=== PATIENT | female | born 1945 | race Caucasian/White ===

== ENCOUNTER 2020-11-26 14:02 | Emergency (ER) | payer BC, MEDICARE ==
[~2020-11-26] VITALS: Ht 157.5 cm; Wt 47.7 kg
[2020-11-26 15:43] LABS: BASOPHILS # (AUTO) 0.1 X10'3 (0-0.2); BASOPHILS % (AUTO) 0.5 % (0-1); EOSINOPHILS % (AUTO) 0.2 % (0-6); HEMATOCRIT 40.1 % (35.0-45.0); HEMOGLOBIN 13.5 g/dl (12.0-16.0); LYMPHOCYTES % (AUTO) 7.3 % (21-51); MEAN CORPUSCULAR HEMOGLOBIN 30.8 PG (27.0-31.0); MEAN CORPUSCULAR HGB CONC 33.7 g/dL (33.0-36.5); MEAN CORPUSCULAR VOLUME 91.5 FL (78-98); MEAN PLATELET VOLUME 8.8 FL (7.4-10.4); MONOCYTES # (AUTO) 1.7 X10'3 (0-0.9); MONOCYTES % (AUTO) 12.9 % (2-12); NEUTROPHILS # (AUTO) 10.6 X10'3 (1.8-7.7); NEUTROPHILS % (AUTO) 79.1 % (42-75); PLATELET COUNT 302 X10'3 (140-440); RED BLOOD COUNT 4.38 X10'6 (4.20-5.60); RED CELL DISTRIBUTION WIDTH 14.1 % (11.5-14.5); WHITE BLOOD COUNT 13.4 X10'3 (4.5-11.0)
[2020-11-26 15:52] LABS: PARTIAL THROMBOPLASTIN TIME 34 SECONDS (22-32)
[2020-11-26 16:05] LABS: ALANINE AMINOTRANSFERASE 18 U/L (12-78); ALBUMIN/GLOBULIN RATIO 0.8 (1.1-1.5); ALKALINE PHOSPHATASE 112 IU/L (46-116); ANION GAP 10 (8-16); ASPARTATE AMINO TRANSFERASE 18 U/L (10-37); BILIRUBIN,TOTAL 0.6 MG/DL (0.1-1.0); BLOOD UREA NITROGEN 14 MG/DL (7-18); BUN/CREATININE RATIO 24.1 (6.6-38.0); CALCIUM 8.9 MG/DL (8.5-10.1); CHLORIDE 105 MMOL/L (99-107); CREATININE 0.58 MG/DL (0.40-0.90); GLUCOSE 117 MG/DL (70-104); LIPASE < 50 U/L (73-393); POTASSIUM 3.6 MMOL/L (3.5-5.1); SODIUM 139 MMOL/L (135-145); TOTAL CARBON DIOXIDE 23.9 MMOL/L (24-32); TOTAL PROTEIN 6.9 G/DL (6.4-8.2); eGFR > 90 ML/MIN
[2020-11-26] MEDS ORDERED: iohexol 300mg/ml 100ml inj. ONE (16:50)
--- NOTE | 2020-11-26 17:05 | NUR ---
Patient complaining of dark stools and generalized pain in "hip bones, lower back, and legs." Luis BAKER updated. orders to cancel covid swab.
[2020-11-26] MEDS ORDERED: GABA-530 PO (18:54)
[2020-11-26] MEDS ORDERED: TRAM50TA2 PO (18:54)
[2020-11-26] MEDS ORDERED: ONDA4TAB6 PO (19:00)
[2020-11-26] MEDS ORDERED: PANT-47 PO (19:00)
[2020-11-26 19:17] VITALS: BP 119/57
== END 2020-11-26 19:19 | disposition home or self-care (01) ==
LOC: ER 14:04
DX: R10.84 Generalized abdominal pain (principal); K92.1 Melena; K52.9 Noninfective gastroenteritis and colitis, unspecified; M25.561 Pain in right knee; G89.29 Other chronic pain; R15.2 Fecal urgency; Z79.899 Other long term (current) drug therapy
CPT/HCPCS: 36415; 71045; 74177; 80053; 83605; 83690; 84145; 85025; 85610; 85730; 87040; 99285; Q9967

== ENCOUNTER 2020-12-08 13:31 | Emergency (ER) | payer BC ==
[~2020-12-08] VITALS: Ht 157.5 cm; Wt 48.0 kg
[~2020-12-08 13:31] MED LIST: GABA-530 PO; ONDA4TAB6 PO; PANT-47 PO; TRAM50TA2 PO
[2020-12-08 13:41] VITALS: BP 144/58
[2020-12-08] MEDS ORDERED: TRAM50TA2 PO (13:53)
== END 2020-12-08 14:18 | disposition home or self-care (01) ==
LOC: ER 13:31
DX: M51.36 Other intervertebral disc degeneration, lumbar region (principal); G89.29 Other chronic pain; R10.84 Generalized abdominal pain; Z76.0 Encounter for issue of repeat prescription; Z79.899 Other long term (current) drug therapy
CPT/HCPCS: 99281

== ENCOUNTER 2023-03-04 22:42 | Emergency (ER) | payer BC, OTHER ==
[~2023-03-04] VITALS: Ht 152.4 cm; Wt 46.0 kg
[~2023-03-04 22:42] MED LIST changes: -TRAM50TA2 PO
[2023-03-05] MEDS ORDERED: CEPH-585 PO (02:39)
[2023-03-05] MEDS ORDERED: HYDR-3965 PO (02:39)
[2023-03-05] MEDS ORDERED: ibuprofen tablet 400 MG TABLET PO ONE (02:45)
[2023-03-05] MEDS ORDERED: ibuprofen 200mg tablet PO ONE (02:50)
[2023-03-05 03:02] VITALS: BP 141/60; PULSE 65; RESP 16; TEMP 98.8; O2SAT 98
[2023-03-06] MEDS ORDERED: TRAM50TA2 PO (15:43)
== END 2023-03-05 03:03 | disposition home or self-care (01) ==
LOC: ER 22:42
DX: S52.501A Unspecified fracture of the lower end of right radius, initial encounter for closed fracture (principal); S01.511A Laceration without foreign body of lip, initial encounter; S80.01XA Contusion of right knee, initial encounter; G89.29 Other chronic pain; Z79.2 Long term (current) use of antibiotics; Z79.899 Other long term (current) drug therapy; Z91.81 History of falling; W01.0XXA Fall on same level from slipping, tripping and stumbling without subsequent striking against object, initial encounter; Y93.01 Activity, walking, marching and hiking; Y92.89 Other specified places as the place of occurrence of the external cause; Y99.8 Other external cause status
CPT/HCPCS: 12011; 29125; 70450; 73110; 73564; 99284